=== PATIENT | female | born 1990 | race Caucasian/White ===

== ENCOUNTER 2024-08-26 22:04 | Emergency (ER) | payer MEDICAID ==
[~2024-08-26] VITALS: Ht 165.1 cm; Wt 59.0 kg
[2024-08-27] MEDS ORDERED: IBUP-1953 PO (02:07)
[2024-08-27] MEDS ORDERED: AMOX-430 PO (02:07)
[2024-08-27 02:14] VITALS: BP 132/88; TEMP 98.1; O2SAT 98
== END 2024-08-27 02:22 | disposition home or self-care (01) ==
LOC: ER 22:12
DX: S01.551A Open bite of lip, initial encounter (principal); S21.052A Open bite of left breast, initial encounter; M54.2 Cervicalgia; Z88.8 Allergy status to other drugs, medicaments and biological substances; Y04.1XXA Assault by human bite, initial encounter; Y93.89 Activity, other specified; Y92.89 Other specified places as the place of occurrence of the external cause; Y99.8 Other external cause status
CPT/HCPCS: 72125-TC